=== PATIENT | female | born 1985 | race Caucasian/White ===

== ENCOUNTER 2019-11-01 14:17 | Emergency (ER) | payer MEDICAID, SELFPAY ==
[2019-11-01 14:34] VITALS: BP 132/92; PULSE 88; RESP 18; TEMP 36.6; O2SAT 98; BMI 24.2
--- NOTE | 2019-11-01 16:11 | ED_ITS ---
HPI - General Adult General: Chief complaint: General Medical Stated complaint: needs new inhaler Time Seen by Provider: 11/01/19 16:11 Source: patient Mode of arrival: ambulatory Limitations: no limitations History of Present Illness: HPI narrative: Patient is a 34-year-old female presents to ED today stating she needs a refill of her albuterol inhaler; patient states she currently is at a rehab facility and states they only allow her to have 3 cigarettes a day and in between cigarettes will give them nicotine lozenges to help with the cravings; patient states she was sucking on all oxygen when she became choked up . Patient states she coughed a small amount but then immediately was normal afterwards. The rehab facility was going to give patient 2 puffs of her albuterol inhaler but when they looked they realized it was and said if she ever had any other issues they would not be able to give this medication and forced patient to come to the ED for a refill. The patient has absolutely no symptoms; she does not complain of a foreign body sensation, cough, shortness of breath Associated symptoms: Deny chest pain, dyspnea, palpitations or syncope Review of Systems ENMT: Denies: throat pain or painful swallowing Card: Denies: chest pain, palpitations, irregular heart rhythm, edema, lightheadedness, syncope, pre-syncope, shortness of breath on exertion or shortness of breath when lying down Resp: Denies: shortness of breath, productive cough, non-productive cough, wheezing, stridor, pain on inspiration, change in phlegm color, coughing up blood or chest congestion PFSH ED PFSH: Statuses (acute, chronic, etc) shown below reflect problem list status as previously entered and may not be historically accurate Social History Smoking and tobacco status: current every day smoker Female Reproductive History: Date of last menstrual period: 10/27/19 Physical Exam Const: COMMON NORMALS: no apparent distress, average body habitus, oriented x3, alert and well nourished ORIENTATION/CONSCIOUSNESS: Yes oriented to person, Yes oriented to place and Yes oriented to time HENMT: COMMON NORMALS: normocephalic and head/scalp atraumatic HEAD & SCALP: normocephalic and atraumatic MOUTH: oral and palatal mucosa normal THROAT: posterior oropharynx normal, tonsils normal and uvula midline Neck/C-Spine: COMMON NORMALS: supple Lymph: LYMPHATIC: no lymphadenopathy noted Chest: COMMONS NORMALS: inspection of chest normal Resp: COMMON NORMALS: normal respiratory effort and clear to auscultation bilaterally AUSCULTATION: clear to auscultation bilaterally Cardio: COMMON NORMALS: regular rate and regular rhythm RATE: regular rate RHYTHM: regular rhythm Neuro: COMMON NORMALS: oriented x3 SENSORIUM/ORIENTATION: Yes alert, Yes oriented to person, Yes oriented to place and Yes oriented to time Skin: COMMON NORMALS: no rashes or lesions noted GENERAL SKIN EXAM: no rashes or lesions noted Course Vital Signs: Vital signs: Vital Signs Temperature 97.8 F 11/01/19 16:51 Pulse Rate 76 11/01/19 16:51 Respiratory Rate 14 11/01/19 16:51 Blood Pressure 130/88 11/01/19 16:51 Pulse Oximetry 98 11/01/19 16:51 MDM - General Adult MDM Narrative: Medical decision making narrative: pt has absolutely no symptoms; will refill inhaler just in case she needs this during her stay Discharge Plan Discharge Patient Disposition: Home, Self-Care Clinical Impression: Medication refill Condition: Stable Prescriptions: New albuterol sulfate 90 mcg/actuation HFA aerosol inhaler 2 inh INHALATION Q4H PRN (Reason: shortness of breath or wheezing) Qty: 6.7 RF: 0 Discharge Orders: Discharge Order (Routine); Ordered 11/01/19 Ordered By: Tabitha Harrison Discharge Diet: Usual diet Discharge Activity: Resume usual activity Activity Restrictions/Additional Instructions: Return to the emergency department for chest pain, shortness of breath, difficulty breathing, persistent cough, foreign body sensation in throat, fevers greater than 100.4, or any other concerns you may have. Discharge Date/Time: 11/01/19 16:39 Coding Level of Care Code ED [employer] for Rodger Murphy Exam Problem Focused
[2019-11-01 16:51] VITALS: BP 130/88; PULSE 76; RESP 14; TEMP 36.6; O2SAT 98
== END 2019-11-01 16:39 | disposition home or self-care (01) ==
LOC: ER 16:22
PROVIDERS: Emergency Provider Physician Assistant
DX: Z76.0 Encounter for issue of repeat prescription (principal); F17.210 Nicotine dependence, cigarettes, uncomplicated
CPT/HCPCS: 99281

== ENCOUNTER 2020-06-27 14:22 | Outpatient (CLI) | payer MEDICAID, SELFPAY ==
--- NOTE | 2020-06-27 14:53 | US_ITS ---
WS: [id number] TRANSABDOMINAL PELVIC AND TRANSVAGINAL PELVIC ULTRASOUND HISTORY: ABNORMAL BLEEDING COMPARISON: None available. Uterus: 7.8 cm x 4.1 cm x 3.9 cm. Normal size anteverted uterus. No fibroid or mass. Endometrium: 1.0 cm. Normal homogeneity. No mass or increased vascularity. Normal endocervical region . Right ovary: 3.1 cm x 2.4 cm x 1.6 cm. Normal size and echogenicity. No solid mass. Normal vascularit y. Left ovary: 2.9 cm x 2.1 cm x 2.0 cm. Normal size and echogenicity. No solid mass. Normal vascularity . No free fluid. US/US pelvic with transvaginal IMPRESSION: 1. Normal endometrium. 2. No adnexal masses.
== END 2020-06-27 14:23 | disposition home or self-care (01) ==
LOC: RAD 14:24
PROVIDERS: Visit Provider Nurse Practitioner Family
DX: N93.9 Abnormal uterine and vaginal bleeding, unspecified (principal); R10.2 Pelvic and perineal pain
CPT/HCPCS: 76830; 76856

== ENCOUNTER 2020-09-20 12:57 | Outpatient (CLI) | payer MEDICAID, SELFPAY ==
[2020-09-20 13:27] LABS: Basophils # 0.1 10^3/uL (0.0-0.1); Basophils % 1.2 %; Eosinophils # 0.1 10^3/uL (0.0-0.8); Eosinophils % 2.3 %; Hematocrit 43.3 % (37.0-47.0); Hemoglobin 14.3 g/dL (11.5-15.3); Lymphocytes # 1.6 10^3/uL (0.8-4.8); Lymphocytes % 28.2 %; Mean Corpuscular Hemoglobin 32.7 pg (28.0-34.0); Mean Corpuscular Volume 99.1 fL (81-99); Mean Platelet Volume 8.4 fL (7.4-10.4); Monocytes # 0.9 10^3/uL (0.2-0.9); Monocytes % 15.6 %; Neutrophils % 52.5 %; Nucleated Red Blood Cells % 0 %; Platelet Count 214 10^3/cmm (130-400); Red Blood Count 4.37 10^6/uL (4.1-5.3); Red Cell Distribution Width 13.7 % (12.1-15.1); White Blood Count 5.7 10^3/uL (4.0-10.0)
[2020-09-20 14:18] LABS: Alanine Aminotransferase 59 U/L (0-33); Albumin Level 4.5 g/dL (3.5-5.2); Alkaline Phosphatase 103 IU/L (35-105); Anion Gap 15.3 (5-19); Aspartate Amino Transferase 157 U/L (0-32); Blood Urea Nitrogen 8 mg/dL (6-20); Calcium 9.4 mg/dL (8.5-10.5); Carbon Dioxide 26 mmol/L (22-29); Chloride 99 mmol/L (98-107); Chol HDL Ratio 1.93 mg/dL (0.0-4.40); Cholesterol 197 mg/dL (0-200); Globulin 2.8 g/dL (1.3-4.6); Glomerular Filtration Rate 140.4 mL/min (90-130); Glucose 100 mg/dL (65-115); HDL Cholesterol 102 mg/dL (60-100); LDL Cholesterol Calculated 81 mg/dL (50-129); LDL HDL Ratio 0.79 RATIO (0.00-3.22); Magnesium 1.4 mg/dL (1.7-2.3); Osmolality Calculated 280 mOsm/kg (285-295); Potassium 4.3 mmol/L (3.5-5.1); Sodium 136 mmol/L (136-145); Thyroid Stimulating Hormone 1.07 uIU/mL (0.27-4.20); Total Bilirubin 0.7 mg/dL (0.15-1.2); Total Protein 7.3 g/dL (6.6-8.7); Triglycerides 71 mg/dL (0-150)
[2020-09-20 15:19] LABS: Free T4 Free Thyroxine 0.85 ng/dL (0.82-1.77)
[2020-09-20 15:36] LABS: Estmated Average Glucose 91; Hemoglobin A1C 4.8 % (4.0-6.0)
== END 2020-09-20 12:58 | disposition home or self-care (01) ==
LOC: LAB 13:08
PROVIDERS: Visit Provider Internal Medicine
DX: I10 Essential (primary) hypertension (principal); R53.83 Other fatigue; R25.2 Cramp and spasm
CPT/HCPCS: 36415; 80053; 80061; 83036; 83735; 84439; 84443; 85025